=== PATIENT | female | born 1965 | race Caucasian/White ===

== ENCOUNTER → 2019-11-08 | Outpatient (CLI) | payer OTHER | END | disposition home or self-care (01) | LOC: RAD 12:09 | PROVIDERS: ATTEND Psychiatry & Neurology Psychiatry | DX: M17.11 Unilateral primary osteoarthritis, right knee (principal) ==

== ENCOUNTER → 2019-11-17 | Outpatient (CLI) | payer OTHER ==
[~2019-11-17] MED LIST: ABILIFY5 MG PO; ATIVAN0.5 MG PO; LEXAPRO20 MG PO; MINIVELLE1 EACH TD; TRAZODONE HCL300 MG PO
== END | disposition home or self-care (01) ==
LOC: COVID19 01:02
PROVIDERS: ATTEND Orthopaedic Surgery
DX: Z01.812 Encounter for preprocedural laboratory examination (principal); Z20.828 Contact with and (suspected) exposure to other viral communicable diseases; M17.11 Unilateral primary osteoarthritis, right knee

== ENCOUNTER 2019-11-22 01:01 | Observation (INO) | payer OTHER ==
[2019-11-17 12:51] VITALS: BP 161/67
[2019-11-17 14:01] LABS: BASO % 0.3 % (0.0-1.0); EOS # 0.3 10*3/uL (0.0-0.4); EOS % 3.3 % (1.0-4.0); HEMATOCRIT 43.5 % (37.0-47.0); LYMPH # 1.5 10*3/uL (1.3-4.4); MEAN CELL VOLUME 94.4 fl (81.0-99.0); MEAN CORPUSCULAR HGB 29.5 pg (27.0-31.0); MEAN CORPUSCULAR HGB CONC 31.3 g/dl (33.0-37.0); MEAN PLATELET VOLUME 10.8 fl (9.6-12.3); MONO # 0.7 10*3/uL (0.1-1.0); MONO % 8.5 % (3.0-9.0); NEUT # 5.1 10*3/uL (2.3-7.9); NEUT % 67.1 % (47.0-73.0); PLATELET COUNT AUTOMATED 247 10*3/uL (130-400); RED BLOOD COUNT 4.61 10*6/uL (4.10-5.10); RED CELL DISTRI WIDTH 13.2 % (0-14.5); WHITE BLOOD COUNT 7.7 10*3/uL (4.8-10.8)
[2019-11-17 14:03] LABS: BILIRUBIN Negative (Negative); BLOOD Negative (Negative); CLARITY Clear (Clear); COLOR Yellow (Yellow); GLUCOSE Negative (Negative); KETONE Negative (Negative); LEUKO ESTERASE Negative (Negative); NITRITE Negative (Negative); PH 6.5 (4.5-8.0); SPECIFIC GRAVITY <= 1.005 (1.001-1.030); UROBILINOGEN 0.2 E.U./dl (0.0-1.0)
[2019-11-17 14:33] LABS: ALBUMIN 3.5 gm/dl (3.1-4.5); BUN 19 mg/dl (7-24); CHLORIDE 111 mmol/L (98-107); CREATININE 0.92 mg/dL (0.55-1.02); SODIUM 141 mmol/L (136-145); TOTAL PROTEIN 7.5 gm/dL (6.4-8.2)
[2019-11-17 14:35] LABS: INTERNATIONAL NORM RATIO 0.9 (2.0-3.5)
[2019-11-17 14:57] LABS: BACTERIA TRACE; EPITHELIAL CELLS 0-2; RBC 0-2 rbc/hpf (0-2); WBC 0-2 wbc/hpf (0-5)
[~2019-11-22] VITALS: Ht 165.1 cm; Wt 131.5 kg
[2019-11-22] VITALS (11 sets, daily range): BP systolic 106–155; BP diastolic 63–89
--- NOTE | 2019-11-22 12:30 | NUR ---
A 54, admitted to , under the services of MAURA Ramos MD with a diagnosis of S/P TOTAL RIGHT KNEE REPLACEMENT. Chief complaint is ADMIT FROM SURGERY S/P TOTAL RIGHT KNEE REPLACEMENT. Patient arrived via bed from [place]. Monitor applied. Initial assessment completed. Vital signs taken and recorded. MAURA RAMOS MD notified of admission to the unit. Orders received. See assessment for past medical history, medications and allergies. Patient and/or family oriented to unit. [facility] visitation policy reviewed. Clothing/patient valuable form completed. SHAAN GALEANA
--- NOTE | 2019-11-22 14:06 | NUR ---
PT GIVEN PERCOCET FOR C/O RIGHT KNEE PAIN. WILL MONITOR FOR EFFECTIVENESS. CALL LIGHT IN REACH.
--- NOTE | 2019-11-22 14:33 | NUR ---
PT STATES THAT SHE ONLY TAKES LEXAPRO AND TRAZODONE AT HOME. LORETTA SUTHERLAND CALLED TO VERIFY THESE DOSAGES. WILL NOTIFY PHYSICIAN.
--- NOTE | 2019-11-22 15:00 | NUR ---
DR HALL STATES THAT IF PATIENT DOES NOT VOID OR IS UNABLE TO VOID, BLADDER SCAN PATIENT AND STRAIGHT CATH PATIENT IF NEEDED. PHYSICIAN STATES THAT IF THIS HAPPENS A SECOND TIME, A BUCHANAN CATHETER MAY BE PLACED.
--- NOTE | 2019-11-22 15:04 | NUR ---
PT GIVEN MORPHINE FOR C/O RIGHT KNEE PAIN. PT RATES PAIN 9/10 ON 1-10 SCALE. WILL MONITOR FOR EFFECTIVENESS. CALL LIGHT IN REACH.
--- NOTE | 2019-11-22 15:06 | NUR ---
PERCOCET EFFECTIVE PER PT.
--- NOTE | 2019-11-22 15:30 | NUR ---
PHYSICAL THERAPY Physical Therapy evaluation completed on 4th floor with full evaluation to follow. Recommend physical therapy per plan of care and SNF vs Home w services pending progress upon discharge. Pt would also benefit from OT consult while in hospital. Thank you for this referral. Omaira Soto PT
--- NOTE | 2019-11-22 16:04 | NUR ---
PT STATES THAT MORPHINE IS EFFECTIVE.
--- NOTE | 2019-11-22 17:04 | NUR ---
PT GIVEN MORPHINE FOR C/O RIGHT KNEE PAIN. RATING PAIN 9/10. WILL MONITOR FOR EFFECTIVENESS. CALL LIGHT IN REACH.
--- NOTE | 2019-11-22 18:04 | NUR ---
PT STATES THAT MORPHINE IS EFFECTIVE.
--- NOTE | 2019-11-22 18:06 | NUR ---
PT REMINDED AND EDUCATED ON USE OF INCENTIVE SPIROMETER.
--- NOTE | 2019-11-22 19:30 | NUR ---
PT RESTING IN BED. RESPS EASY AND NON LABORED. NO S/S OF DISTRESS NOTED. VSS. WHITE BOARD UPDATED. POC DISCUSSED W PT. A/O X3. STATES HER KNEE HURTS W ANY MOVEMENT. DRESSING TO RLE C/D/I. 3L NC AND CONT SPO2 INTACT. WILL CONTINUE TO MONITOR. CALL LIGHT WITHIN REACH.
--- NOTE | 2019-11-22 19:30 | NUR ---
PT GIVEN PERCOCET AT THIS TIME FOR C/O RIGHT KNEE PAIN, RATES PAIN 9/10. WILL MONITOR FOR EFFECTIVENESS. CALL LIGHT IN REACH.
--- NOTE | 2019-11-22 20:23 | NUR ---
MEDICATION APPEARS EFFECTIVE. PT SLEEPING. RESPS EASY AND NON LABORED. CALL LIGHT WITHIN REACH.
--- NOTE | 2019-11-22 21:33 | NUR ---
PT C/O 10/19 SHARP/THROBBING R KNEE PAIN R/T SX. PT STATES CURRENT IV SITE IS BURNING. Hep Lock discontinued. Site asymptomatic. Pressure applied. Sterile dressing applied. IV started right antecubital with # 22protective cath after 1 attempts. Site prepped with Chloroprep. Sterile dressing applied. Patient tolerated procedure well. MEDICATED PER ORDER. WILL MONITOR FOR RELIEF. RESPS EASY AND NON LABORED. VSS. OXYGEN TURNED TO 4L NC D/T SPO2 92%. CURRENTLY 96%. RESTING IN BED WATCHING TV. CALL LIGHT WITHIN REACH.
--- NOTE | 2019-11-22 22:00 | NUR ---
PT STATES PAIN MEDICATION MOSTLY EFFECTIVE AND WOULD LIKE "WHATEVER SHE CAN HAVE" WHEN IT IS TIME
--- NOTE | 2019-11-22 23:30 | NUR ---
PT C/O 07/19 THROBBING R KNEE PAIN. MEDICATED PER ORDER. WILL MONITOR FOR RELIEF. RESPS EASY AND NON LABOORED. RESTING IN BED. CALL LIGHT WITHIN REACH.
[2019-11-23] VITALS: BP 119/65
--- NOTE | 2019-11-23 00:30 | NUR ---
MEDICATION APPEARS EFFECTIVE. PT SLEEPING. RESPS EASY AND NONLABORED. CALL LIGHT WITHIN REACH.
--- NOTE | 2019-11-23 02:33 | NUR ---
PT C/O 10/19 STABBING/THROBBING R KNEE PAIN. MEDICATED PER ORDER. WILL MONITOR FOR RELIEF. RESPS EASY AND NON LABORED. CALL LIGHT WITHIN REACH. PT GIVEN NEW ICE BAG
--- NOTE | 2019-11-23 03:30 | NUR ---
MEDICATION APPEARS EFFECTIVE. PT SLEEPING. RESPS EASY AND NON LABORED. CALL LIGHT WITHIN REACH.
--- NOTE | 2019-11-23 05:18 | NUR ---
PT C/O 07/19 THROBBING R KNEE PAIN. MEDICATED PER ORDER. WILL MONITOR FOR RELIEF. RESPS EASY AND NON LABORED. CALL LIGHT WITHIN REACH.
[2019-11-23 06:12] LABS: BUN 19 mg/dl (7-24); CHLORIDE 107 mmol/L (98-107); CREATININE 0.96 mg/dL (0.55-1.02); SODIUM 139 mmol/L (136-145)
[2019-11-23 06:14] LABS: BASO % 0.2 % (0.0-1.0); EOS % 0.1 % (1.0-4.0); HEMATOCRIT 40.5 % (37.0-47.0); LYMPH # 1.2 10*3/uL (1.3-4.4); LYMPH % 9.7 % (27.0-41.0); MEAN CELL VOLUME 96.9 fl (81.0-99.0); MEAN CORPUSCULAR HGB 29.7 pg (27.0-31.0); MEAN CORPUSCULAR HGB CONC 30.6 g/dl (33.0-37.0); MEAN PLATELET VOLUME 10.7 fl (9.6-12.3); MONO # 1.2 10*3/uL (0.1-1.0); MONO % 9.4 % (3.0-9.0); PLATELET COUNT AUTOMATED 267 10*3/uL (130-400); RED BLOOD COUNT 4.18 10*6/uL (4.10-5.10); RED CELL DISTRI WIDTH 13.6 % (0-14.5); WHITE BLOOD COUNT 12.5 10*3/uL (4.8-10.8)
--- NOTE | 2019-11-23 06:18 | NUR ---
PT STATES MEDICATION EFFECTIVE. GIVEN NEW ICE BAG PER HER REQUEST
[2019-11-23 06:35] LABS: THYROID STIM HORMONE (HS) 1.3 uIU/ml (0.358-4.75)
[2019-11-23 08:00] VITALS: BP 121/57; BP 146/66
--- NOTE | 2019-11-23 08:25 | NUR ---
PT MEDICATED WITH PRN MORPHINE FOR C/O RIGHT KNEE PAIN PRIOR TO PHYSICAL THERAPY WORKING WITH HER. WILL MONITOR.
--- NOTE | 2019-11-23 08:45 | NUR ---
PHYSICAL THERAPY pt was laying supine iupon arrival. 1 on 1 tx provided. seen in AM for physsical therapy tx. pt reports 5/10 pain in R knee. removed ice bag and pillow and educated on proper propping techn. to promote extension. Bed mobility from supine to EOB=MIN A w/ R LE. pt sits EOB x2 min and educated on proper STS techn. and R knee extension to prevent increase in pain. STS from EOB to walker MIN /MOD A w/ bed slightly elevated. Gt w/ wheeled walker from EOB to bathroom 10' w/ CGA and v/c on proper sequencing w/ AD. STS from commode pt requires MOD A w/ increased difficulty d/t lower surface. Gt w/ wheeled walker from bathroom to room chair requiring MIN A for safely descending into chair. propping in chair to promote TKE and elevation. SPo2 monitored throughout tx on 4L w/ portable o2 tank w/ 94% prior to tx w? decreasing to 90% w/ education on pursed lip breahting during activity to improve breathing techn. will continue w/ POC. total tx time 16 min. Suzette Frances, RETROFIT INSTALLER
--- NOTE | 2019-11-23 08:55 | NUR ---
PRN MORPHINE EFFECTIVE PER PT. PT UP IN CHAIR AFTER WORKING WITH PT. WILL MONITOR.
--- NOTE | 2019-11-23 09:00 | NUR ---
Councilor in to talk to patient. Patient states lives at home with her ex-. There are 0 steps in the home. Physician: Dr. Favio George [facility]: wants [facility] on discharge Patient's level of ADLs: MINIMAL ASSIST Patient has working utilities: yes DME: cane Follow-up physician's appointment after d/c: will be made by the hospitalist nurse director upon discharge Does patient want to access PORTAL?: no Discharge plan discussed with patient. She is sitting up in her bedside chair. She lives at home with her ex-. She is normally independent in her ADLs and ambulates with a cane. She is requesting a walker for home. Discussed short term rehab and she declines. Discussed home health care services and she is agreeable. When provided with a list of agencies she chose [facility]. When medically stable she will be discharged to home with [facility]. She states her ex-, Daniel, will provide transportation on discharge. MAKI GUTIERREZ
--- NOTE | 2019-11-23 09:56 | NUR ---
PT MEDICATED WITH PRN PERCOCET FOR C/O RIGHT KNEE PAIN. PT RATES A 7. WILL MONITOR.
--- NOTE | 2019-11-23 11:30 | NUR ---
IS USE ENCOURAGED AT THIS TIME.
[2019-11-23 12:00] VITALS: BP 134/62
--- NOTE | 2019-11-23 12:30 | NUR ---
Occupational Therapy evaluation completed on 4 with full eval to follow. Precautions include fall risk, WBAT RLE, new ww use, moderate complexity level 40713. Recommend OT per POC and home w/ home health SN,OT/PT. Thank you. Radha Banks OTR/L
--- NOTE | 2019-11-23 12:35 | NUR ---
PHYSICAL THERAPY Patient seen this pm 1;1 for therapy visit and was sitting up in bedside chair upon therapist arrival. Patient identified by name / and joined by OTR for observation this session. Patient reports only mild c/o of R knee soreness since taking pain meds approx 50 minutes ago and is WBAT on R LE. Patient presents with continuos O2-4L via NC and records resting SpO2 94% prior to transfering sit to stand from low chair surface, MIN/MOD A. Patient needed a little extra static stand time to fully collect herself, use of walker standing support. Patient ambulates 20'x 1 to bathroom, walker, CGA, demonstrating slow antalgic, "step to" meenakshi. Patient records SpO2 92%, needing v/c for purse lip breathing technique prior to returning to EOB sit, 15'x 1. Patient transfers sit to supine, MOD A and remained with R LE elevated on pillow, recording SpO2 97%. Patient remained in bed with call light, tray table and telephone. Will continue per POC as tolerated, total treatment time 17 minutes. Aldair Sun, MEDICAL INSURANCE CLERK
--- NOTE | 2019-11-23 12:35 | NUR ---
Faxed home health order, face to face, and clinical to [facility]
--- NOTE | 2019-11-23 13:09 | NUR ---
PT MEDICATED WITH PRN MORPHINE FOR C/O 10/19 RIGHT KNEE PAIN. WILL MONITOR.
--- NOTE | 2019-11-23 13:19 | NUR ---
[facility]axed [facility]. Awaiting response.
--- NOTE | 2019-11-23 13:22 | NUR ---
Faxed four wheeled walker prescription to [facility]. Awaiting response.
--- NOTE | 2019-11-23 13:44 | NUR ---
DR. QUINTERO NOTIFIED THAT PATIENT'S RIGHT HAND IS RED AND SLIGHTLY EDEMATOUS.
--- NOTE | 2019-11-23 13:45 | NUR ---
PRN MORPHINE EFFECTIVE PER PT.
--- NOTE | 2019-11-23 14:05 | NUR ---
Received call from [facility]. Patient's insurance is out of network. The only DME that takes patient's insurance is [facility]. Faxed referral to medical services. Awaiting response.
--- NOTE | 2019-11-23 14:14 | NUR ---
Spoke to ex-, Daniel, regarding the need for a walker at home. He would like CM to reach out to [facility]. Spoke to Deanna at [facility]. She states they do take the [facility] Community plan insurance. Referral faxed. Awaiting return call. Notified Daniel.
[2019-11-23 15:52] VITALS: BP 129/34
--- NOTE | 2019-11-23 16:34 | NUR ---
PT MEDICATED WITH PRN PERCOCET FOR C/O 9/10 RIGHT KNEE PAIN. WILL MONITOR.
--- NOTE | 2019-11-23 17:12 | NUR ---
PT ENCOURAGED TO USE INCENTIVE SPIROMETER.
--- NOTE | 2019-11-23 18:31 | NUR ---
PT MEDICATED WITH PRN MORPHINE FOR C/O 10/19 RIGHT KNEE PAIN. WILL MONITOR.
[2019-11-23 20:00] VITALS: BP 140/80
--- NOTE | 2019-11-23 20:10 | NUR ---
24 HR CHART CHECK COMPLETE.
--- NOTE | 2019-11-23 23:30 | NUR ---
ASSUMED CARE OF PT AT THIS TIME. PT TRANSFERRED TO AT THIS TIME. NO COMPLAINTS. CALL LIGHT IN REACH
[2019-11-24] VITALS: BP 138/80
--- NOTE | 2019-11-24 00:25 | NUR ---
MORPHINE GIVEN PER ORDER FOR COMPLAINTS OF R KNEE PAIN.
--- NOTE | 2019-11-24 01:20 | NUR ---
PER PT, MORPHINE HELPED A LITTLE
--- NOTE | 2019-11-24 02:31 | NUR ---
PT MEDICATED WITH PERCOCET PER ORDER FOR COMPLAINTS OF RIGHT KNEE PAIN
--- NOTE | 2019-11-24 03:30 | NUR ---
PERCOCET APPEARS EFFECTIVE. PT ASLEEP
--- NOTE | 2019-11-24 05:31 | NUR ---
PT ASLEEP. RESPIRATIONS EASY AND UNLABORED. CALL LIGHT IN REACH
[2019-11-24 06:26] LABS: BASO % 0.2 % (0.0-1.0); EOS # 0.1 10*3/uL (0.0-0.4); HEMATOCRIT 37.4 % (37.0-47.0); LYMPH # 1.6 10*3/uL (1.3-4.4); LYMPH % 14.5 % (27.0-41.0); MEAN CELL VOLUME 96.9 fl (81.0-99.0); MEAN CORPUSCULAR HGB 30.1 pg (27.0-31.0); MEAN PLATELET VOLUME 11.1 fl (9.6-12.3); MONO # 1.2 10*3/uL (0.1-1.0); MONO % 10.8 % (3.0-9.0); NEUT # 8.2 10*3/uL (2.3-7.9); PLATELET COUNT AUTOMATED 226 10*3/uL (130-400); RED BLOOD COUNT 3.86 10*6/uL (4.10-5.10); RED CELL DISTRI WIDTH 13.7 % (0-14.5); WHITE BLOOD COUNT 11.2 10*3/uL (4.8-10.8)
--- NOTE | 2019-11-24 07:06 | NUR ---
Prescription changed to front wheeled walker per therapy request. Prescription faxed yesterday (11/22) to [facility]. [facility] was notified of change.
[2019-11-24 08:00] VITALS: BP 140/76
--- NOTE | 2019-11-24 08:14 | NUR ---
PERCOCET GIVEN FOR C/O RT KNEE PAIN. RATES 9/10 ON PAIN SCALE. WILL MONITOR.
--- NOTE | 2019-11-24 09:15 | NUR ---
PERCOCET EFFECTIVE PER PT.
--- NOTE | 2019-11-24 09:26 | NUR ---
PHYSICAL THERAPY TREATMENT TIME: 09:10 AM - OUT 09:26 AM 16 MINUTES PRESENTATION: Patient gives informed consent for treatment Identified by name and on wristband Has O2 but NOT wearing spO2 2 LITERS of spO2 R TKR COMPLAINTS; R KNEE PAIN of 8/10 WB STATUS: WBAT ON THE R LE ASSISITVE DEVICE: Wh Walker TRANSFERS: Supine <> sitting on EOB: MIN A X 1 Sitting on EOB: cga STS <> bedside commode/low chair: MIN A X 1 Verbal cues for hand placement TREATMENT: GAIT with Wh Walker and CGA for 15' x 2 with CGA RESPONSE TO TREATMENT: O2 SAT at 95% RA post ambulating 15' x 1 and doing transfers Patient had no LOB with gait Turned 180' x 1 without LOB Wh Walker No significant increased pain post treatment CONCLUSION: Patient was left in bedside chair with call light within reach and bed alarm on. Head of bed elevated CIERRA Hernandez PRESENT WITNESS TO THIS TREATMENT tray table near patient. RADHA MEDEL HEADRIG SAWYER
--- NOTE | 2019-11-24 09:30 | NUR ---
OT NOTE Pt was seen this A.M. 1:1 for 15 minute OT session. Upon arrival pt was supine in bed. Pt identified by name and and had complaints of 9/10 R knee pain stating "It is that high because I just back into bed from being up getting a bath and moving around." Pt presented to therapy on room air with SpO2 reading 94%. Pt transferred supine to sit EOB with Sofía for assist with RLE. Sit to stand completed from bed level with CGA and use of w/w for UE support. Functional mobility completed from the EOB to the bathroom with CGA and use of w/w. There she transferred on to the standard commode with CGA and verbal prompts provided for kicking her RLE out while sitting. Clothing management completed with CGA and toilet hygiene completed with supervision while seated. She then transferred off standard commode with Sofía due to low surface. Functional mobility completed back to the EOB with CGA and use of w/w. Pt declined any other activity at this time due to fatigue. Pt transferred sit to supine with Sofía for assist with RLE. There she was left with call light in hand, tray table in place, and bed alarm activated for safety. Continue with rec D/C plan to home with home health. CIERRA Jose/Gordo
--- NOTE | 2019-11-24 10:53 | NUR ---
Spoke to An at [facility]. Walker will be delivered to her home today.
[2019-11-24 12:00] VITALS: BP 146/72
--- NOTE | 2019-11-24 12:20 | NUR ---
[facility] Discharge instructions reviewed with patient/family. Patient receptive and verbalizes understanding. Follow-up care arranged. Written instructions given to patient/family. TAMIKO MORAN
--- NOTE | 2019-11-24 12:25 | NUR ---
PERCOCET GIVEN FOR C/O RT KNEE PAIN, RATES 8/10 ON PAIN SCALE. WILL MONITOR.
--- NOTE | 2019-11-24 12:58 | NUR ---
CM in to see patient. Nurse in room with discharge paperwork. Asked if she has spoken to her ex- today and if the walker was delivered. She said yes the walker was delivered early this morning per her ex-.
--- NOTE | 2019-11-24 13:01 | NUR ---
Faxed discharge instructions and summary to [facility]
--- NOTE | 2019-11-25 07:40 | NUR ---
PHYSICAL THERAPY CO-SIGN I approve of the Physical Therapy notes written above. Omaira Soto PT
--- NOTE | 2019-11-25 17:05 | NUR ---
OCCUPATIONAL THERAPY CO-SIGN I approve of the Occupational Therapy notes written above. BECKY CONTRERAS OTR/Gordo
== END 2019-11-24 13:00 | disposition home or self-care (01) ==
LOC: SDC 01:01 → 4E 07:22 → SDC 07:30 → 5E 11-23 22:15
PROVIDERS: Internal Medicine; ADMIT Orthopaedic Surgery; ATTEND Orthopaedic Surgery
DX: M17.11 Unilateral primary osteoarthritis, right knee (principal); E66.01 Morbid (severe) obesity due to excess calories; D72.829 Elevated white blood cell count, unspecified; E87.8 Other disorders of electrolyte and fluid balance, not elsewhere classified; F41.9 Anxiety disorder, unspecified; Z47.1 Aftercare following joint replacement surgery

== ENCOUNTER → 2019-12-06 | Outpatient (CLI) | payer OTHER | END | disposition home or self-care (01) | LOC: RAD 13:41 | PROVIDERS: ATTEND Orthopaedic Surgery | DX: Z96.651 Presence of right artificial knee joint (principal) ==

== ENCOUNTER → 2020-01-04 | Outpatient (CLI) | payer OTHER | END | disposition home or self-care (01) | LOC: ORTHO 00:23 | PROVIDERS: ATTEND Orthopaedic Surgery | DX: Z96.651 Presence of right artificial knee joint (principal) ==

== ENCOUNTER → 2020-02-13 | Outpatient (CLI) | payer OTHER | END | disposition home or self-care (01) | LOC: ORTHO 00:19 | PROVIDERS: ATTEND Orthopaedic Surgery | DX: Z47.1 Aftercare following joint replacement surgery (principal); Z96.651 Presence of right artificial knee joint ==

== ENCOUNTER → 2020-02-27 | Outpatient (CLI) | payer OTHER ==
[~2020-02-27] MED LIST changes: +ASPIRIN ADULT L81 M2 PO; +HYDROCODONE-AC1 EAC1 PO; +MOBIC15 MG PO; +PERCOCET 5-3251 EACH PO; +VITAMIN D350 MC2 PO
== END | disposition home or self-care (01) ==
LOC: CT 14:42
PROVIDERS: ATTEND Orthopaedic Surgery
DX: M17.12 Unilateral primary osteoarthritis, left knee (principal)

== ENCOUNTER → 2020-03-05 | Outpatient (CLI) | payer OTHER | END | disposition home or self-care (01) | LOC: RAD 10:46 | PROVIDERS: ATTEND Orthopaedic Surgery | DX: M17.12 Unilateral primary osteoarthritis, left knee (principal); M21.162 Varus deformity, not elsewhere classified, left knee ==

== ENCOUNTER → 2020-04-11 | Outpatient (CLI) | payer OTHER | END | disposition home or self-care (01) | LOC: COVID19 10:11 | PROVIDERS: ATTEND Orthopaedic Surgery | DX: Z01.812 Encounter for preprocedural laboratory examination (principal); Z20.822 Contact with and (suspected) exposure to COVID-19 ==

== ENCOUNTER → 2020-04-12 | Outpatient (CLI) | payer OTHER ==
[2020-04-12 13:25] LABS: BASO % 0.3 % (0.0-1.0); EOS # 0.2 10*3/uL (0.0-0.4); EOS % 2.5 % (1.0-4.0); LYMPH # 1.7 10*3/uL (1.3-4.4); LYMPH % 27.3 % (27.0-41.0); MEAN CELL VOLUME 94.1 fl (81.0-99.0); MEAN CORPUSCULAR HGB 29.5 pg (27.0-31.0); MEAN CORPUSCULAR HGB CONC 31.3 g/dl (33.0-37.0); MEAN PLATELET VOLUME 11.1 fl (9.6-12.3); MONO # 0.6 10*3/uL (0.1-1.0); NEUT # 3.8 10*3/uL (2.3-7.9); NEUT % 60.4 % (47.0-73.0); PLATELET COUNT AUTOMATED 246 10*3/uL (130-400); RED BLOOD COUNT 4.78 10*6/uL (4.10-5.10); RED CELL DISTRI WIDTH 14.5 % (0-14.5); WHITE BLOOD COUNT 6.3 10*3/uL (4.8-10.8)
[2020-04-12 13:48] LABS: BUN 9 mg/dl (7-24); CHLORIDE 110 mmol/L (98-107); CREATININE 0.78 mg/dL (0.55-1.02); POTASSIUM 4.1 mmol/L (3.5-5.1); SODIUM 144 mmol/L (136-145)
== END | disposition home or self-care (01) ==
LOC: LAB 11:42
PROVIDERS: ATTEND Orthopaedic Surgery
DX: M17.12 Unilateral primary osteoarthritis, left knee (principal)

== ENCOUNTER 2020-04-17 02:56 | Inpatient (IN) | payer OTHER ==
[2020-04-12 12:47] VITALS: BP 119/48
[~2020-04-17] VITALS: Ht 165.1 cm; Wt 129.4 kg
[2020-04-17] VITALS (9 sets, daily range): BP systolic 106–135; BP diastolic 56–92
[~2020-04-17 02:56] MED LIST changes: -ASPIRIN ADULT L81 M2 PO; -HYDROCODONE-AC1 EAC1 PO; -PERCOCET 5-3251 EACH PO; -VITAMIN D350 MC2 PO
[2020-04-18] VITALS: BP 124/68
[2020-04-18 06:13] LABS: BUN 12 mg/dl (7-24); CHLORIDE 108 mmol/L (98-107); CREATININE 0.93 mg/dL (0.55-1.02); POTASSIUM 4.2 mmol/L (3.5-5.1); SODIUM 139 mmol/L (136-145)
[2020-04-18 06:20] LABS: BASO % 0.1 % (0.0-1.0); HEMATOCRIT 41.5 % (37.0-47.0); LYMPH # 0.7 10*3/uL (1.3-4.4); LYMPH % 5.5 % (27.0-41.0); MEAN CELL VOLUME 93.3 fl (81.0-99.0); MEAN CORPUSCULAR HGB 29.4 pg (27.0-31.0); MEAN CORPUSCULAR HGB CONC 31.6 g/dl (33.0-37.0); MEAN PLATELET VOLUME 11.7 fl (9.6-12.3); MONO % 7.2 % (3.0-9.0); NEUT # 11.4 10*3/uL (2.3-7.9); NEUT % 86.4 % (47.0-73.0); PLATELET COUNT AUTOMATED 261 10*3/uL (130-400); RED BLOOD COUNT 4.45 10*6/uL (4.10-5.10); RED CELL DISTRI WIDTH 14.2 % (0-14.5); WHITE BLOOD COUNT 13.2 10*3/uL (4.8-10.8)
[2020-04-18 08:00] VITALS: BP 122/60
[2020-04-18] MEDS ORDERED: ATIVAN0.5 MG PO (10:47)
[2020-04-18 12:00] VITALS: BP 118/68
[2020-04-18 16:00] VITALS: BP 128/58
[2020-04-18 20:00] VITALS: BP 164/76
[2020-04-19] VITALS: BP 144/79
[2020-04-19 06:24] LABS: BASO % 0.2 % (0.0-1.0); EOS # 0.1 10*3/uL (0.0-0.4); EOS % 0.5 % (1.0-4.0); HEMATOCRIT 40.6 % (37.0-47.0); LYMPH # 1.6 10*3/uL (1.3-4.4); LYMPH % 16.8 % (27.0-41.0); MEAN CELL VOLUME 94.9 fl (81.0-99.0); MEAN CORPUSCULAR HGB 29.4 pg (27.0-31.0); MEAN PLATELET VOLUME 11.1 fl (9.6-12.3); MONO # 0.9 10*3/uL (0.1-1.0); MONO % 9.7 % (3.0-9.0); NEUT # 6.8 10*3/uL (2.3-7.9); NEUT % 72.1 % (47.0-73.0); PLATELET COUNT AUTOMATED 219 10*3/uL (130-400); RED BLOOD COUNT 4.28 10*6/uL (4.10-5.10); RED CELL DISTRI WIDTH 14.4 % (0-14.5); WHITE BLOOD COUNT 9.5 10*3/uL (4.8-10.8)
[2020-04-19 06:53] LABS: BUN 12 mg/dl (7-24); CHLORIDE 108 mmol/L (98-107); CREATININE 0.76 mg/dL (0.55-1.02); POTASSIUM 3.8 mmol/L (3.5-5.1); SODIUM 142 mmol/L (136-145)
[2020-04-19 08:00] VITALS: BP 147/79
[2020-04-19 12:00] VITALS: BP 136/68
[2020-04-19] MEDS ORDERED: HYDROCODONE-AC1 EAC1 PO ×2 (14:57)
[2020-04-19] MEDS ORDERED: ASPIRIN ADULT L81 M2 PO (14:57)
[2020-04-19] MEDS ORDERED: VITAMIN D350 MC2 PO (14:57)
[2020-04-19 16:00] VITALS: BP 152/85
[2020-04-19 20:00] VITALS: BP 158/81
[2020-04-20] VITALS: BP 141/59
[2020-04-20 08:00] VITALS: BP 114/61
[2020-04-20] MEDS ORDERED: PERCOCET 5-3251 EACH PO ×3 (08:22→13:15)
[2020-04-20 12:04] VITALS: BP 122/65
== END 2020-04-20 15:41 | disposition home health service (06) | DRG 326 ==
LOC: SDC 02:56 → 4E 08:41 → 5E 08:41 → 4E 09:56 → SDC 10:30 → 4E 04-20 15:41
PROVIDERS: Internal Medicine; ADMIT Internal Medicine; ATTEND Internal Medicine
PROC: 0SRD0J9 Replacement of Left Knee Joint with Synthetic Substitute, Cemented, Open Approach (ICD-10-PCS; principal; 2020-04-17)
DX: M17.12 Unilateral primary osteoarthritis, left knee (principal); E66.01 Morbid (severe) obesity due to excess calories; F41.9 Anxiety disorder, unspecified; G89.18 Other acute postprocedural pain; G47.00 Insomnia, unspecified; Z90.49 Acquired absence of other specified parts of digestive tract; Z82.5 Family history of asthma and other chronic lower respiratory diseases; Z88.8 Allergy status to other drugs, medicaments and biological substances; Z68.42 Body mass index [BMI] 45.0-49.9, adult; Z79.899 Other long term (current) drug therapy; E83.51 Hypocalcemia

== ENCOUNTER → 2020-05-02 | Outpatient (CLI) | payer OTHER ==
[~2020-05-02] MED LIST changes: +ASPIRIN ADULT L81 M2 PO; +HYDROCODONE-AC1 EAC1 PO; +PERCOCET 5-3251 EACH PO; +VITAMIN D350 MC2 PO
== END | disposition home or self-care (01) ==
LOC: ORTHO 09:28
PROVIDERS: ATTEND Orthopaedic Surgery
DX: Z47.1 Aftercare following joint replacement surgery (principal); M25.462 Effusion, left knee; Z96.652 Presence of left artificial knee joint

== ENCOUNTER → 2020-05-30 | Outpatient (CLI) | payer OTHER | END | disposition home or self-care (01) | LOC: ORTHO 00:45 | PROVIDERS: ATTEND Orthopaedic Surgery | DX: Z47.1 Aftercare following joint replacement surgery (principal); Z96.652 Presence of left artificial knee joint ==

== ENCOUNTER → 2020-07-13 | Outpatient (CLI) | payer OTHER | END | disposition home or self-care (01) | LOC: ORTHO 01:35 | PROVIDERS: ATTEND Orthopaedic Surgery | DX: Z47.1 Aftercare following joint replacement surgery (principal); Z96.652 Presence of left artificial knee joint ==

== ENCOUNTER → 2020-11-09 | Outpatient (CLI) | payer OTHER | END | disposition home or self-care (01) | LOC: ORTHO 12:56 | PROVIDERS: ATTEND Orthopaedic Surgery | DX: Z47.1 Aftercare following joint replacement surgery (principal); Z96.652 Presence of left artificial knee joint ==

== ENCOUNTER → 2020-11-12 | Outpatient (CLI) | payer OTHER | END | disposition home or self-care (01) | LOC: RAD 00:27 | PROVIDERS: ATTEND Orthopaedic Surgery | DX: Z47.1 Aftercare following joint replacement surgery (principal); Z96.651 Presence of right artificial knee joint ==

== ENCOUNTER → 2021-08-16 | Outpatient (CLI) | payer OTHER | END | disposition home or self-care (01) | LOC: ORTHO 01:47 | PROVIDERS: ATTEND Orthopaedic Surgery | DX: Z09 Encounter for follow-up examination after completed treatment for conditions other than malignant neoplasm (principal); Z96.651 Presence of right artificial knee joint ==

== ENCOUNTER → 2023-11-23 | Outpatient (CLI) | payer OTHER | END | disposition home or self-care (01) | LOC: ORTHO 08:33 | PROVIDERS: ATTEND Orthopaedic Surgery | DX: M77.32 Calcaneal spur, left foot (principal) ==